=== PATIENT | female | born 1980 | race Caucasian/White ===

== ENCOUNTER → 2016-11-25 | Outpatient (CLI) | payer BC ==
--- NOTE | 2016-11-26 14:02 | MR ---
EXAM DATE: 11/25/16 PATIENT'S AGE: 36 Patient: DONNIE SCHREIBER Facility: [place], [place] Site . Site : [id number] Study: MRI Spine Cervical [id number] 7:31:04 PM Ordering Physician: Physician Jorge Final Report: Indication: Neck pain. Right shoulder and arm pain. Comparison: None. Technique: Sagittal T1, T2, and STIR sequences. Axial T2 and gradient sequences. Findings: Straightening of the normal cervical lordosis which is likely due to a combination of patient positioning and muscle spasm. Otherwise, normal vertebral body facet alignment. No fractures. No vertebral body loss of height. No spondylolisthesis. No ligamentous injury. Normal marrow signal. Normal cord signal. Visualized brainstem and cerebellum appear normal. C2-3: No spinal canal or neural foraminal narrowing. C3-4: Posterior disk bulge with no spinal canal or neural foraminal narrowing. C4-5: Posterior disk bulge or disk osteophyte complex. Partial effacement of the ventral thecal sac. No narrowing of spinal canal. Mild narrowing of the left neural foramen. No narrowing of the right neural foramen. C5-6: Disc degeneration with mild posterior disc bulge or disk osteophyte complex. Otherwise, no spinal canal or neural foraminal narrowing. C6-7: Disc degeneration with posterior disc bulge or disk osteophyte complex. No narrowing of spinal canal. Mild narrowing of bilateral neural foramina. C7-T1: No spinal canal or neural foraminal narrowing. No spinal canal or neural foraminal narrowing in the visualized upper thoracic spine. Impression: 1. Straightening of the normal cervical lordosis. Otherwise, normal alignment. No fractures. No spondylolisthesis. 2. Normal cord signal. 3. At C4-5, mild narrowing of the left neural foramen 4. At C5-6, disk degeneration with mild posterior disc bulge or disk osteophyte complex. No spinal canal or neural foraminal narrowing 5. At C6-7, mild narrowing of the bilateral foramina Dictated by Oli Carr MD @ Nov 25 2016 8:59PM (Electronic Signature) Report Signed by Proxy and Original Signed Document filed in the Medical Record. [facility]
== END ==
LOC: MW.MRI 17:54
PROVIDERS: ATTEND Specialist
DX: M54.2 Cervicalgia (principal); G90.519 Complex regional pain syndrome I of unspecified upper limb; M53.82 Other specified dorsopathies, cervical region
CPT/HCPCS: 72141; 72141-26

== ENCOUNTER 2019-10-01 18:20 | Emergency (ER) | payer BC ==
[2019-10-01] MEDS ORDERED: Sodium Chloride 0.9% 1,000 ML IV ONE (18:31)
[2019-10-01] MEDS ORDERED: Sodium Chloride 0.9% 10 ML Syringe FLUSH PRN (18:31)
[2019-10-01] MEDS ORDERED: Sodium Chloride 0.9% 2.5 ML Syringe FLUSH PRN (18:31)
--- NOTE | 2019-10-01 18:33 | EDM.PDOC ---
ED HPI GENERAL MEDICAL PROBLEM - General Chief Complaint: Genitourinary Problem Stated Complaint: KIDNEY STONE Time Seen by Provider: 10/01/19 18:33 Source of Information: Reports: Patient History Limitations: Reports: No Limitations - History of Present Illness INITIAL COMMENTS - FREE TEXT/NARRATIVE: HISTORY AND PHYSICAL: History of present illness: Patient is a 39-year-old female presents to the ED with complaint of kidney stones. Patient reports history of kidney stones. She states that she had blood in her urine a couple of days ago and starting having left flank pain then. She states today the pain is worsened. She states she normally is able to pass the stones without difficulty. She states she has been nauseous but denies vomiting or diarrhea, fevers or chills. Past surgical history includes appendectomy. Review of systems: As per history of present illness and below otherwise all systems reviewed and negative. Past medical history: As per history of present illness and as reviewed below otherwise noncontributory. Surgical history: As per history of present illness and as reviewed below otherwise noncontributory. Social history: No reported history of drug or alcohol abuse. Family history: As per history of present illness and as reviewed below otherwise noncontributory. Physical exam: General: Patient sitting comfortably in no acute distress and nontoxic appearing HEENT: Atraumatic, normocephalic, pupils reactive, negative for conjunctival pallor or scleral icterus, mucous membranes moist, throat clear, neck supple, nontender, trachea midline. No meningeal signs. Lungs: Clear to auscultation, breath sounds equal bilaterally, chest nontender. Heart: S1S2, regular, negative for clicks, rubs, or overt murmur. Abdomen: Soft, nondistended, nontender. Negative for masses or hepatosplenomegaly. Right costovertebral tenderness. No rigidity, rebound, guarding. Pelvis: Stable nontender. Genitourinary: Deferred. Rectal: Deferred. Extremities: Atraumatic, negative for cords or calf pain. Neurovascular unremarkable. Neuro: Awake, alert, oriented. Cranial nerves II through XII unremarkable. Cerebellum unremarkable. Motor and sensory unremarkable throughout. Exam nonfocal. Notes: Patient symptoms improved after receiving pain medication. Patient states she urinated prior to CT scan and did have some hematuria. CT scan does not show evidence of nephrolithiasis. Discussed with patient lab and CT results and offered further imaging including CT with contrast. She declines at this time and requesting discharge home. Diagnostics: CBC, CMP, UA, CT abdomen pelvis w/o contrast Therapeutics: 1L NS IV 1.5mg Dilaudid IV 4mg Zofran IV x 2 Prescriptions: Declined pain medication Declined antibiotic Impression: Flank pain, history of nephrolithiasis Plan: Alternate tylenol and motrin as needed Follow up with primary care provider and urology Return to ED as needed as discussed Definitive disposition and diagnosis as appropriate pending reevaluation and review of above. Left Lower Abdomen Pain Score (Numeric/FACES): 7 - Related Data Allergies Allergy/AdvReac Type Severity Reaction Status Date / Time Sulfa (Sulfonamide Allergy Other Verified 10/01/19 18:25 Antibiotics) vancomycin Allergy Other Verified 10/01/19 18:25 Home Meds: Home Meds . [No Known Home Meds] 10/01/19 [History] ED ROS GENERAL - Review of Systems Review Of Systems: Comprehensive ROS is negative, except as noted in HPI. ED EXAM, RENAL/ - Physical Exam Exam: See Below (see dictation) Course - Vital Signs Last Recorded V/S: Last Vital Signs Temp 96.8 F 10/01/19 19:27 Pulse 106 H 10/01/19 19:27 Resp 26 H 10/01/19 19:27 BP 122/66 10/01/19 19:27 Pulse Ox 97 10/01/19 19:27 - Orders/Labs/Meds Orders: Active Orders 24 hr Category Date Time Status Sodium Chloride 0.9% [Saline Flush] Med 10/01/19 18:31 Active 10 ml FLUSH ASDIRECTED PRN Sodium Chloride 0.9% [Saline Flush] Med 10/01/19 18:31 Active 2.5 ml FLUSH ASDIRECTED PRN Saline Lock Insert [OM.PC] Stat Oth 10/01/19 18:31 Ordered Medication Orders Sodium Chloride (Saline Flush) 10 ml FLUSH ASDIRECTED PRN PRN Reason: Keep Vein Open Last Admin: 10/01/19 18:47 Dose: 10 ml Sodium Chloride (Saline Flush) 2.5 ml FLUSH ASDIRECTED PRN PRN Reason: Keep Vein Open Last Admin: 10/01/19 18:47 Dose: 2.5 ml Labs: Laboratory Tests 10/01/19 10/01/1910/01/20 Range/Units 18:29 18:35 18:35 WBC 11.88 H (4.0-11.0) K/uL RBC 4.18 L (4.30-5.90) M/uL Hgb 12.6 (12.0-16.0) g/dL Hct 36.7 (36.0-46.0) % MCV 87.8 (80.0-98.0) fL MCH 30.1 (27.0-32.0) pg MCHC 34.3 (31.0-37.0) g/dL RDW Std Deviation 42.7 (28.0-62.0) fl RDW Coeff of Mayuri 13 (11.0-15.0) % Plt Count 436 H (150-400) K/uL MPV 9.90 (7.40-12.00) fL Neut % (Auto) 44.5 L (48.0-80.0) % Lymph % (Auto) 47.4 H (16.0-40.0) % [place] % (Auto) 5.4 (0.0-15.0) % Eos % (Auto) 2.4 (0.0-7.0) % Baso % (Auto) 0.3 (0.0-1.5) % Neut # (Auto) 5.3 (1.4-5.7) K/uL Lymph # (Auto) 5.6 H (0.6-2.4) K/uL [place] # (Auto) 0.6 (0.0-0.8) K/uL Eos # (Auto) 0.3 (0.0-0.7) K/uL Baso # (Auto) 0.0 (0.0-0.1) K/uL Nucleated RBC % 0.0 /100WBC Nucleated RBCs # 0 K/uL Sodium 144 (136-145) mmol/L Potassium 3.7 (3.5-5.1) mmol/L Chloride 107 (98-107) mmol/L Carbon Dioxide 22.4 (21.0-32.0) mmol/L BUN 15 (7.0-18.0) mg/dL Creatinine 0.8 (0.6-1.0) mg/dL Est Cr Clr Drug Dosing 91.81 mL/min Estimated GFR (MDRD) > 60.0 ml/min Glucose 84 (74-106) mg/dL Calcium 9.2 (8.5-10.1) mg/dL Total Bilirubin 0.2 (0.2-1.0) mg/dL AST 22 (15-37) IU/L ALT 46 (14-63) IU/L Alkaline Phosphatase 63 (46-116) U/L Total Protein 7.9 (6.4-8.2) g/dL Albumin 3.8 (3.4-5.0) g/dL Globulin 4.1 H (2.6-4.0) g/dL Albumin/Globulin Ratio 0.9 (0.9-1.6) Urine Color YELLOW Urine Appearance CLEAR Urine pH 6.5 (5.0-8.0) Ur Specific [place] 1.020 (1.001-1.035) Urine Protein NEGATIVE (NEGATIVE) mg/dL Urine Glucose (UA) NEGATIVE (NEGATIVE) mg/dL Urine Ketones NEGATIVE (NEGATIVE) mg/dL Urine Occult Blood TRACE-INTACT H (NEGATIVE) Urine Nitrite NEGATIVE (NEGATIVE) Urine Bilirubin NEGATIVE (NEGATIVE) Urine Urobilinogen 0.2 (<2.0) EU/dL Ur Leukocyte Esterase NEGATIVE (NEGATIVE) Urine RBC 1-4 (0-2/HPF) Urine WBC 0-3 (0-5/HPF) Ur Epithelial Cells RARE (NONE-FEW) Urine Bacteria 1+ H (NEGATIVE) Urine HCG, Qual (NEGATIVE) 10/01/19 Range/Units 18:35 WBC (4.0-11.0) K/uL RBC (4.30-5.90) M/uL Hgb (12.0-16.0) g/dL Hct (36.0-46.0) % MCV (80.0-98.0) fL MCH (27.0-32.0) pg MCHC (31.0-37.0) g/dL RDW Std Deviation (28.0-62.0) fl RDW Coeff of [place] (11.0-15.0) % Plt Count (150-400) K/uL MPV (7.40-12.00) fL Neut % (Auto) (48.0-80.0) % Lymph % (Auto) (16.0-40.0) % [place] % (Auto) (0.0-15.0) % Eos % (Auto) (0.0-7.0) % Baso % (Auto) (0.0-1.5) % Neut # (Auto) (1.4-5.7) K/uL Lymph # (Auto) (0.6-2.4) K/uL [place] # (Auto) (0.0-0.8) K/uL Eos # (Auto) (0.0-0.7) K/uL Baso # (Auto) (0.0-0.1) K/uL Nucleated RBC % /100WBC Nucleated RBCs # K/uL Sodium (136-145) mmol/L Potassium (3.5-5.1) mmol/L Chloride (98-107) mmol/L Carbon Dioxide (21.0-32.0) mmol/L BUN (7.0-18.0) mg/dL Creatinine (0.6-1.0) mg/dL Est Cr Clr Drug Dosing mL/min Estimated GFR (MDRD) ml/min Glucose (74-106) mg/dL Calcium (8.5-10.1) mg/dL Total Bilirubin (0.2-1.0) mg/dL AST (15-37) IU/L ALT (14-63) IU/L Alkaline Phosphatase (46-116) U/L Total Protein (6.4-8.2) g/dL Albumin (3.4-5.0) g/dL Globulin (2.6-4.0) g/dL Albumin/Globulin Ratio (0.9-1.6) Urine Color Urine Appearance Urine pH (5.0-8.0) Ur Specific [place] (1.001-1.035) Urine Protein (NEGATIVE) mg/dL Urine Glucose (UA) (NEGATIVE) mg/dL Urine Ketones (NEGATIVE) mg/dL Urine Occult Blood (NEGATIVE) Urine Nitrite (NEGATIVE) Urine Bilirubin (NEGATIVE) Urine Urobilinogen (<2.0) EU/dL Ur Leukocyte Esterase (NEGATIVE) Urine RBC (0-2/HPF) Urine WBC (0-5/HPF) Ur Epithelial Cells (NONE-FEW) Urine Bacteria (NEGATIVE) Urine HCG, Qual NEGATIVE (NEGATIVE) Meds: Medications Generic Name Dose Route Start Last Admin Trade Name Freq PRN Reason Stop Dose Admin Sodium Chloride 10 ml 10/01/19 18:31 10/01/19 18:47 Saline Flush FLUSH 10 ml ASDIRECTED PRN Administration Keep Vein Open Sodium Chloride 2.5 ml 10/01/19 18:31 10/01/19 18:47 Saline Flush FLUSH 2.5 ml ASDIRECTED PRN Administration Keep Vein Open Discontinued Medications Generic Name Dose Route Start Last Admin Trade Name Freq PRN Reason Stop Dose Admin Hydromorphone HCl 0.5 mg 10/01/19 18:38 10/01/19 18:45 Dilaudid IVPUSH 10/01/19 18:39 0.5 mg ONETIME ONE Administration Hydromorphone HCl 1 mg 10/01/19 19:01 10/01/19 19:24 Dilaudid IVPUSH 10/01/19 19:02 1 mg ONETIME ONE Administration Sodium Chloride 1,000 mls @ 999 mls/hr 10/01/19 18:31 10/01/19 18:35 Normal Saline IV 10/01/19 19:31 999 mls/hr STAT ONE Administration Ketorolac Tromethamine 30 mg 10/01/19 19:34 10/01/19 19:40 Toradol IVPUSH 10/01/19 19:35 30 mg ONETIME ONE Administration Morphine Sulfate 4 mg 10/01/19 18:36 Morphine IVPUSH 10/01/19 18:37 ONETIME ONE Ondansetron HCl 4 mg 10/01/19 18:36 10/01/19 18:45 Zofran IVPUSH 10/01/19 18:37 4 mg ONETIME ONE Administration Ondansetron HCl 4 mg 10/01/19 20:10 10/01/19 20:29 Zofran IVPUSH 10/01/19 20:11 4 mg ONETIME ONE Administration Departure - Departure Time of Disposition: 20:55 Disposition: Home, Self-Care 01 Condition: Good Clinical Impression: Flank pain, History of nephrolithiasis - Discharge Information Referrals: PCP,Unobtain [Primary Care Provider] - Forms: ED Department Discharge Additional Instructions: The following information is given to patients seen in the emergency department who are being discharged to home. This information is to outline your options for follow-up care. We provide all patients seen in our emergency department with a follow-up referral. The need for follow-up, as well as the timing and circumstances, are variable depending upon the specifics of your emergency department visit. If you don't have a primary care physician on staff, we will provide you with a referral. We always advise you to contact your personal physician following an emergency department visit to inform them of the circumstance of the visit and for follow-up with them and/or the need for any referrals to a consulting specialist. The emergency department will also refer you to a specialist when appropriate. This referral assures that you have the opportunity for follow-up care with a specialist. All of these measure are taken in an effort to provide you with optimal care, which includes your follow-up. Under all circumstances we always encourage you to contact your private physician who remains a resource for coordinating your care. When calling for follow-up care, please make the office aware that this follow-up is from your recent emergency room visit. If for any reason you are refused follow-up, please contact the [facility] Emergency Department at and asked to speak to the emergency department charge nurse. [facility] [address] [place] [address] [place] [address] [facility] - Urology [address] [place] [address] Alternate tylenol and motrin as needed Follow up with primary care provider and urology Return to ED as needed as discussed Sepsis Event Note - Evaluation Sepsis Screening Result: No Definite Risk - Focused Exam Vital Signs: Vital Signs Temp Pulse Resp BP Pulse Ox 10/01/19 19:27 96.8 F 106 H 26 H 122/66 97 10/01/19 18:26 96.5 F 130 H 22 H 131/74 96 Date Exam was Performed: 10/01/19 Time Exam was Performed: 20:54 - My Orders Last 24 Hours: My Active Orders 10/01/19 18:31 Sodium Chloride 0.9% [Saline Flush] 10 ml FLUSH ASDIRECTED PRN Sodium Chloride 0.9% [Saline Flush] 2.5 ml FLUSH ASDIRECTED PRN Saline Lock Insert [OM.PC] Stat - Assessment/Plan Last 24 Hours: My Active Orders 10/01/19 18:31 Sodium Chloride 0.9% [Saline Flush] 10 ml FLUSH ASDIRECTED PRN Sodium Chloride 0.9% [Saline Flush] 2.5 ml FLUSH ASDIRECTED PRN Saline Lock Insert [OM.PC] Stat
[2019-10-01] MEDS ORDERED: Morphine 4 MG/ML Syringe IVPUSH ONE (18:36)
[2019-10-01] MEDS ORDERED: Ondansetron 4 MG/2 ML SDV IVPUSH ONE ×2 (18:36→20:10)
[2019-10-01] MEDS ORDERED: HYDROmorphone 1 MG/ML Syringe IVPUSH ONE ×2 (18:38→19:01)
[2019-10-01 19:09] LABS: BLOOD UREA NITROGEN,BUN 15 mg/dL (7.0-18.0); CARBON DIOXIDE,CO2 22.4 mmol/L (21.0-32.0); CHLORIDE,CL 107 mmol/L (98-107); GLUCOSE RANDOM 84 mg/dL (74-106); POTASSIUM,K 3.7 mmol/L (3.5-5.1); SODIUM,NA 144 mmol/L (136-145)
[2019-10-01] MEDS ORDERED: Ketorolac 30 MG/ML SDV IVPUSH ONE (19:34)
--- NOTE | 2019-10-01 20:24 | CT ---
CT abdomen and pelvis Technique: Multiple axial sections were obtained from above the dome of the diaphragm inferiorly through the pubic symphysis. Intravenous and oral contrast was not utilized. Comparison: No previous abdominal imaging is available. Findings: Visualized lung bases show nothing acute. Noncontrast appearance of the liver shows no discrete abnormality. Spleen appears within normal limits. Adrenal glands show no nodule. Pancreas shows no discrete abnormality. Gallbladder contains no calcified gallstones. Kidneys show no abnormal calcifications. No hydronephrosis is seen. Aorta shows no aneurysm. No retroperitoneal adenopathy or mesenteric abnormalities are seen. No pelvic mass or adenopathy is identified. Appendix not visualized with certainty. No free fluid or inflammatory change is appreciated. Slight increased stool is seen within portions of the right colon and transverse colon. Lesser stool within the left colon. Bone window settings were reviewed which appear without acute finding. Impression: 1. Nothing acute is definitely appreciated on noncontrast CT of the abdomen. 2. Mild increased stool is identified within portions of the colon. Diagnostic code #2 This report was dictated in [place] Standard Time
== END 2019-10-01 21:17 | disposition home or self-care (01) ==
LOC: MW.ED 18:20
DX: R10.9 Unspecified abdominal pain (principal); R31.9 Hematuria, unspecified; Z88.1 Allergy status to other antibiotic agents; Z88.2 Allergy status to sulfonamides
CPT/HCPCS: 36415; 74176; 80053; 81001; 81025; 85025; 96361; 96374; 96375; 96376; 99284; J1170; J1885; J2405; J7030